=== PATIENT | male | born 1995 | race Caucasian/White ===

== ENCOUNTER 2017-02-11 09:49 | Day surgery (SDC) | payer OTHER ==
[2017-02-11] VITALS (11 sets, daily range): BP systolic 150–178; BP diastolic 84–121; PULSE 57–83; RESP 12–18; O2SAT 97–100
[~2017-02-11] VITALS: Ht 180.3 cm; Wt 81.6 kg
[~2017-02-11 09:49] MED LIST: CeFAZolin 2 Gm/50 mL D5W IV Premix IV ONE; Lactated Ringer's 1,000 ML IV SCH
[2017-02-11] MEDS ORDERED: MetoCLOpramide 5 mg/mL 2 mL Inj ONE (09:50)
[2017-02-11] MEDS ORDERED: Lidocaine PF 1% 30 mL Inj ONE (09:50)
[2017-02-11] MEDS ORDERED: Ondansetron 2 mg/mL 2 mL Inj ONE (09:50)
[2017-02-11] MEDS ORDERED: Succinylcholine Chloride 20 mg/mL 5 mL Inj ONE (09:50)
[2017-02-11] MEDS ORDERED: Propofol 10,000 mCg/mL 20 mL Inj ONE (09:50)
[2017-02-11] MEDS ORDERED: fentaNYL-PF 50 mCg/mL 2 mL Inj ONE (09:50)
[2017-02-11] MEDS ORDERED: Dexamethasone 4 mg/mL Inj ONE (09:50)
[2017-02-11] MEDS ORDERED: CeFAZolin Inj 2 gm / 50mL D5W IV ONE (10:06)
[2017-02-11] MEDS ORDERED: Lactated Ringer's 1,000 ML IV ONE (10:29)
--- NOTE | 2017-02-11 11:39 | PCM.HPANE ---
Patient Data Surgeon Admitting Provider: Attending Provider:Raul Cortez MD Primary Care Physician:Mariluz Other Provider:Juno Butcher Anesthesia Reason for Visit Right Shoulder Labral Tear Ht/WT & BMI Height (Feet): 5 Height (Inches): 11.00 Weight (Kilograms): 81.600 Body Mass Index 25.00 Allergies Coded Allergies: No Known Allergies (Verified , 02/06/17) Past Anesthesia History Anesthesia History: Denies:: Anesthesia Reactions, Malignant Hyperthermia Diabetes History Hx Diabetes?: No MRSA MRSA: No Medications Home Meds Incl Beta Sofi: No No Active Prescriptions or Reported Meds History History of ENT Problems?: No Hx of Heart Problems?: No Cardiovascular History: Denies:: Heart Murmur Hypertension Hx of Respiratory Problem?: No Respiratory History: Denies:: Use of C-PAP Machine Hx Neurologic Problems?: Yes Other Neurological Pertinent: HX OF CONCUSSION Hx of GI Problems?: No Hx of Problems?: No Male Hx: Denies:: Prostate Problems Scrotal Mass Testicular Surgery Skin History: Denies:: History Skin Disorders? Pressure Ulcers Hx Musculoskeletal Problems?: Yes Musculoskeletal History: Positive for:: Musculoskeletal Trauma (S/P ORIF RT ANKLE RT SHOULDER LABRAL TEAR=CURRENT PROBLEM) Hx of Psycho/Social Problems?: No Hx Surgeries?: Yes (ORIF RT ANKLE FX) Hx Any Other Health Problems?: Yes Other History: Positive for:: Hospitalization (CONCUSSION) Denies:: Cancer Thyroid Disease Hx Diabetes: No Hx Alcohol Use: Yes (6 pk qd)Hx Substance Use: NoHave You Smoked inLast 12 mo : No Stop/Bang S-Snoring: Do You Snore Loudly: No T-Tired: feel tired, fatigued: No O-Obsered: Observed not breath: No P-Blood Pressure: treated: No B- Body Mass Index > 35 kg/m2: No A- Age over 50: No N- Neck Large Circumference: No G- Gender Male: Yes JENNY Total Score: 1 JENNY Risk Assessment: Low Risk, <3 Yes Risk Assessment Category Category 1A: Patient has history of documented sleep apnea, and HAS NOT received any narcotic, sedative or anesthesia administration during this stay. Category 1B: Patient has history of documented sleep apnea, and HAS received any narcotic , sedative or anesthesia administration during this stay Category 2: Patient has SUSPECTED Obstructive Sleep Apnea, and HAS received any narcotic , sedative or anesthesia administration during this stay. Category 3: Patient has SUSPECTED Obstructive Sleep Apnea and HAS NOT received narcotic, sedative or anesthesia administration during this stay. Category 4: Outpatient in Procedural Areas with known sleep apnea or who screen positive for High Risk via the STOP/BANG questionnaire. Exam Exam Vital Signs Vital Signs Date Time Temp Pulse Resp B/P Pulse Ox O2 Delivery O2 Flow Rate FiO2 02/11/17 10:02 37 64 16 150/92 100 Room Air General Appearance: Alert, Oriented X3, Cooperative, No Acute Distress HEENT/AIRWAY: MP 2 Lungs: Clear to Auscultation, Normal Air Movement Heart: Exam Unremarkable, Regular Rate/Rhythm, No Murmurs/Rubs/Gallops Meds/Labs/Diagnostics Admission Meds Current Medications Lactated Ringer's (Lr) 1,000 ml @ ud STK-MED ONCE IV Last administered on t 10:29; Start 02/11/17 at 10:29; Stop 02/11/17 at 10:30; Status DC Plan Impression Patient chart reviewed, patient interviewed and anesthestic plan with risks, benefits, and alternatives discussed, and informed consent obtained. NPO Status: 0800 WATER ASA Physical Status: ASA1 Normal Healthy Anesthetic Plan: GA, Regional Block (ISB with US) Bene/Risks/Altern/Consents: Yes HP Complete Prior to Induction: Yes Geovanni Atkinson MD Feb 11, 2017 10:39
[2017-02-11] MEDS ORDERED: HYDROcodone-APAP 5-325 mg Tablet PO PRN (12:15)
[2017-02-11] MEDS ORDERED: Ketorolac 15 mg/mL Inj IVPUSH ONE (12:15)
--- NOTE | 2017-02-11 12:23 | PCM.ORTHOP ---
Orthopedic Operative Report Date of Service: Feb 11, 2017 Pre Operative Diagnosis right shoulder anterior bankart labral tear Post Operative Diagnosis right shoulder anterior bankart labral tear Procedure right shoulder arthroscopy, anterior bankart labral repair, multiple loose bodies removal Surgeon Surgeon: Raul Cortez MD Assistants: Taz Gomez Indication for Procedure Right shoulder instability Findings Per dictation Details of Procedure HUNTER SURGEON: During the operation, the services of physician surgical territory manager were medically indicated and necessary to provide exposure of the operative site for the surgical procedure and to maintain the limb in a proper position to carry out the operation safely and efficiently. Without the qualified elementary assistant principal being present, it would have extended the operative procedure and made the procedure technically more difficult to perform. INDICATIONS: The patient is Harjinder Norman who is a 21-year-old male who has developed recurrent instability of the right shoulder. X-rays show the glenohumeral joint to be well maintained. The risks, benefits, and alternatives of surgery were discussed with the patient. The risks included but were not limited to infection, bleeding, damage to vessels and nerves, loss of motion, continued pain, complications due to anesthesia including myocardial infarction , stroke, , etc. The patient stated understanding of the nature of the surgical procedure and gave written and verbal consent to proceed. PROCEDURE: The patient was brought into the operating room and placed supine on the operating room table. A supraclavicular block was placed in the right shoulder for postoperative pain management, followed by the administration of general anesthesia. Preoperative antibiotics was given The patient was then placed into the lateral decubitus position with the right side up. An axillary role was placed and the legs were padded as necessary to avoid pressure points. The patient was maintained in position with a beanbag evacuation device. A thorough examination of the right shoulder under anesthesia was performed. The patient had 150 degrees of forward elevation and 120 degrees of abduction. In 90 degrees of abduction the patient had 90 degrees of external rotation and 70 degrees of internal rotation. The right shoulder was then examined for stability. In neutral rotation there was 4/5 anterior instability. The right upper extremity was then prepped and draped in the usual fashion. The arm was suspended with a well-padded sleeve with eight pounds of balanced suspension in the arthroscopic position. A standard posterior portal was made inferior and medial to the posterior corner of the acromion. The incision was made only through skin. The trocar was advanced through the soft tissue with a blunt- tipped obturator. This was inserted into the glenohumeral joint without difficulty. The arthroscope was placed through the cannula and attached to the video monitor system. Inflow was achieved using the arthroscopic pump. The pressure was maintained at 35-40 mm of mercury throughout the entire procedure. Once the arthroscope confirmed visualization within the shoulder joint, it was advanced anteriorly into the rotator interval beneath the biceps tendon. A Wissinger ellen was then used to create the anterior portal from inside-out. A second anterior stab wound incision was made only through skin and an anterior cannula was placed. A routine arthroscopic survey was begun Survey: multiple loose bodies largest 2cm X 1cm, grade 4 chondromalacia humeral head, bankart lesion 1-6PM, posterior labral fraying Complex surgical procedure: This was an extremely complex surgical procedure which took approximately 30-40% longer to complete than a standard repair. Without the use of a qualified therapist's assistant, this surgical procedure would have taken even considerably longer and been unable to be performed arthroscopically Multiple loose bodies were removed from the shoulder, The labrum was debrided posteriorly, anteriorly the fluid collection was noted and washed out with fluid , Anterior labral bankart repair, no remplissage: Attention was then directly toward anterior labral repair. An anterior mid-glenoid portal was established with an outside in technique just above the subscapularis. With the arthroscope in the anterior superior viewing portal there was evidence of significant tearing of the anterior inferior labrum, Bankart lesion. Using a Liberator elevator and a blunt tipped coquille bar, a full thickness capsulolabral elevation was carried out down to the 6 o'clock position. The fibers of the subscapularis were well seen. The medial neck of the glenoid was well maintained and lightly abraded using the motorized shaver. The articular cartilage margin along with the anterior glenoid rim was lightly debrided using a curette. The first suturetak anchor was placed in the 5:00 position using the curved housekeeper home for the anchor. The anchor was deployed and seated with excellent secure fixation. The sutures from this anchor were then passed beginning with the 1st stitch at the 5:30 position and advancing the tissue from inferior to superior and from medial to lateral. This was a full thickness labral bite which restored an excellent buttress inferiorly. After the 1st labral stitch was placed, the humeral head was well centralized on the glenoid. The 2nd anchor and suture was passed taking a plication bite as well as a full thickness labral bite creating a hospital corner repair with excellent secure fixation. Another additional anchor was placed more proximally with excellent fixation purchase. The remaining sutures were passed advancing the anterior inferior capsule and labrum from inferior to superior and medial to lateral. There appeared to be excellent caodaism of the anterior labral bumper. The drive-through sign was eliminated. The humeral head appeared to be well centralized, visualizing from both anterior superior and the posterior cannula. There was excellent caodaism of the bumper and no further evidence for instability. Closure: The arm was then taken out of traction. The instability both in neutral rotation and in abduction external rotation was eliminated. The humeral head was well centralized. The arthroscope was then used to visualize the repair both from the anterior superior viewing portal and the posterior viewing portal which showed the humeral head to be well balanced with excellent and appropriate tissue tension. The glenohumeral joint was then copiously irrigated with an additional liter of lactated Ringers solution and excess fluid was drained. The arthroscopic portals were closed with #4-0 Nylon and Steri-Strips. A dry sterile dressing was applied, followed by a neutral rotation sling. The patient was awakened in the Operating Room and transported to the Recovery Room in satisfactory condition. He appeared to tolerate the procedure well. There were no complications noted. Nonweightbearing to affected upper extremity. Please leave sling on at all times. You may remove sling 3 times a day to move the elbow wrist and fingers. Do not move your shoulder. Please keep the affected extremity elevated when possible. You may use ice and/or heat as needed for comfort. Follow-up in 2 weeks with me with for suture removal and Steri-Strip application. Follow-up with me at 6 weeks with progression of physical therapy as per my protocol (please ask me for protocol if needed). Follow-up with me before full release at 3 months postop. Grafts, Implants: Implants-See Implant Record Complications There were no periprocedural complications identified. Condition Stable Anesthetic Administered: GA Catheters: None Output, Estimated Blood Loss: 5 Blood Admin during surgery: No Surgical Cast or Splint: Shoulder Immobilizer, Other Surgical Specimen Removed: No Specimen sent to Pathology: No copies to: Raul Cortez MD, Christopher L MD Feb 11, 2017 12:23
[2017-02-11] MEDS ORDERED: Phenylephrine 10,000 mCg/mL Inj IVPUSH PRN (13:00)
[2017-02-11] MEDS ORDERED: Dexamethasone 4 mg/mL Inj IVPUSH PRN (13:00)
[2017-02-11] MEDS ORDERED: fentaNYL-PF 50 mCg/mL 2 mL Inj IVPUSH PRN (13:00)
[2017-02-11] MEDS ORDERED: HYDROmorphone 1 mg/mL Inj IVPUSH PRN (13:00)
[2017-02-11] MEDS ORDERED: MetoCLOpramide 5 mg/mL 2 mL Inj IVPUSH PRN (13:00)
[2017-02-11] MEDS ORDERED: EPHEDrine Sulfate 50 mg/mL Inj IVPUSH PRN (13:00)
[2017-02-11] MEDS ORDERED: Lactated Ringer's 500 ML IV PRN (13:00)
[2017-02-11] MEDS ORDERED: Ondansetron 2 mg/mL 2 mL Inj IVPUSH PRN (13:00)
[2017-02-11] MEDS ORDERED: Lactated Ringer's 1,000 ML IV SCH (13:00)
[2017-02-11] MEDS ORDERED: Ropivacaine-PF 0.5% 30 mL Inj INJ ONE (13:23)
[2017-02-11] MEDS ORDERED: hydrALAZINE 20 mg/mL Inj IVPUSH PRN (14:45)
[2017-02-11] MEDS ORDERED: Labetalol 5 mg/mL 4 mL Inj IV PRN (14:45)
--- NOTE | 2017-02-11 17:23 | PCM.ANEP1 ---
Post Anesthesia Phase 1 PACU Phase 1 Assessment Date of Service: Feb 11, 2017 Vital Signs Vital Signs Date Time Temp Pulse Resp B/P Pulse Ox O2 Delivery O2 Flow Rate FiO2 02/11/17 15:09 36.5 70 18 158/91 99 Room Air 02/11/17 15:00 64 15 153/84 97 Room Air 02/11/17 14:55 36.6 72 16 166/98 97 Room Air 02/11/17 14:45 59 15 178/96 97 Room Air 02/11/17 14:40 66 16 171/94 98 Room Air 02/11/17 14:35 66 12 176/105 99 Room Air 02/11/17 14:30 67 17 166/111 99 Room Air 02/11/17 14:25 83 15 172/121 100 Room Air 02/11/17 14:21 57 13 151/100 100 Simple Mask 8 02/11/17 14:17 36.1 77 12 150/100 100 Simple Mask 8 02/11/17 10:02 37 64 16 150/92 100 Room Air Anesthetic Administered: GA Level of Alertness: Awake, talking CRAIN's with Equal Strength: Yes Pain: No Pain Scale Score: 0 Nausea or Vomiting: No Oxygen Delivery: Simple Mask Lungs: Clear to Auscultation, Normal Air Movement Shaheen Goldberg MD Feb 11, 2017 17:23
--- NOTE | 2017-02-11 17:24 | PCM.ANEP2 ---
Post Anesthesia Evaluation ASA/CMS Post Anesthesia VS in Patient's Normal Range?: Yes Resp Stable; Airway Patent?: Yes CV Function & Hydration Stable: Yes Mental Status Recovered?: Yes Pain control Satisfactory?: Yes N/V Control Satisfactory?: Yes Shaheen Goldberg MD Feb 11, 2017 17:24
== END 2017-02-11 23:59 | disposition home or self-care (01) ==
LOC: SAS 09:49
PROVIDERS: ATTEND Orthopaedic Surgery
PROC: 0RQJ4ZZ Repair Right Shoulder Joint, Percutaneous Endoscopic Approach (ICD-10-PCS; principal; 2017-02-11 12:00)
DX: S43.491A Other sprain of right shoulder joint, initial encounter (principal); Y04.0XXA Assault by unarmed brawl or fight, initial encounter